=== PATIENT | male | born 1980 | race Caucasian/White ===

== ENCOUNTER 2017-07-23 09:39 | Emergency (ER) | payer OTHER ==
[2017-07-23 09:53] VITALS: BP 149/70; PULSE 92; RESP 18; TEMP 99.1; O2SAT 99
--- NOTE | 2017-07-23 10:01 | C.PDOC ---
History Of Present Illness 37 y/o male presents to the ER for dry non-productive cough which has been present for 2 days. Patient reports that he takes Dayquil occasionally.Patient reports that he has 2 daughters at home with similar symptoms. Patient denies having any other medical complaints. Time Seen by Provider: 07/23/17 09:55 Chief Complaint (Nursing): Flu-like Symptoms History Per: Patient History/Exam Limitations: no limitations Onset/Duration Of Symptoms: Days Associated Symptoms: Cough Severity: Moderate Past Medical History Reviewed: Historical Data, Nursing Documentation, Vital Signs Vital Signs: Last Vital Signs Temp 99.1 F 07/23/17 09:52 Pulse 92 H 07/23/17 09:52 Resp 18 07/23/17 09:52 BP 149/70 07/23/17 09:52 Pulse Ox 99 07/23/17 10:48 - Medical History PMH: No Chronic Diseases Surgical History: No Surg Hx Family History: States: No Known Family Hx Review Of Systems Except As Marked, All Systems Reviewed And Found Negative. Constitutional: Negative for: Fever, Chills ENT: Negative for: Nose Congestion, Throat Pain Respiratory: Positive for: Cough Physical Exam - Physical Exam Appears: Non-toxic, No Acute Distress Skin: Normal Color, Warm Head: Atraumatic, Normacephalic Eye(s): bilateral: Normal Inspection, PERRL Ear(s): Bilateral: Normal Nose: Normal Oral Mucosa: Moist Throat: Normal, No Erythema, No Exudate Neck: Supple Chest: Symmetrical Cardiovascular: Rhythm Regular Respiratory: Normal Breath Sounds, No Accessory Muscle Use Extremity: Normal ROM Neurological/Psych: Oriented x3, Normal Speech, Normal Cognition, Normal Motor, Normal Sensation ED Course And Treatment O2 Sat by Pulse Oximetry: 99 (RA) Pulse Ox Interpretation: Normal Progress Note: Patient given Motrin and Tylenol. Medical Decision Making Medical Decision Making: mild viral syndrome no bacterial infection educated dayquil/nyquil and duration 11-14 days LOW kailey of ACEI cough as nasal congestion and sore throat associated and more likely viral synd Disposition Doctor Will See Patient In The: Office Counseled Patient/Family Regarding: Studies Performed, Diagnosis - Disposition Referrals: [facility] [Outside] [facility] [Outside] Disposition: HOME/ ROUTINE Disposition Time: 10:00 Condition: GOOD Additional Instructions: continue dayquil/nyquil regularly as directed Symptoms of viral syndrome may last 10-14 days! Instructions: Viral Syndrome (ED) Forms: [employer] (Brazilian) - Clinical Impression Clinical Impression: Influenza-like illness - Scribe Statement The provider has reviewed the documentation as recorded by the Annetteibe Stephon Florentino Provider Attestation: All medical record entries made by the Annetteibe were at my direction and personally dictated by me. I have reviewed the chart and agree that the record accurately reflects my personal performance of the history, physical exam, medical decision making, and the department course for this patient. I have also personally directed, reviewed, and agree with the discharge instructions and disposition.
== END 2017-07-23 10:07 | disposition home or self-care (01) ==
LOC: C.ER 09:39
DX: J11.1 Influenza due to unidentified influenza virus with other respiratory manifestations (principal)